=== PATIENT | female | born 1930 | race Caucasian/White ===

== ENCOUNTER 2017-12-22 15:58 | Inpatient (IN) | payer MEDICARE ==
--- NOTE | 2017-12-22 16:55 | ED ---
General Adult HPI - General Chief complaint: Extremity Injury, Lower Stated complaint: fall Time Seen by Provider: 12/22/17 16:00 Source: patient, RN notes reviewed Mode of arrival: EMS Limitations: altered mental status, physical limitation - History of Present Illness Initial comments: This is an 87-year-old female who comes in complaining of left hip pain. Patient states she does walk up steps and fell off the last step onto her left hip. Patient states she was unable to get up on her own so she had to be brought in by ambulance. Patient states she can move her legs fairly well but is still has some pain in the lateral aspect of her hip. Patient denies any head injury or trauma. Patient denies headache. Patient denies numbness weakness. Patient denies any neck pain. Patient denies any upper extremity pain. Patient denies any chest pain or back pain. Patient denies any abdominal pain. Patient's only complaint is left hip pain. - Related Data Home Medications Medication Instructions Recorded Confirmed Calcium Carbonate/Vitamin D3 1 tab PO DAILY 12/22/17 12/22/17 [Calcium 600-Vit D3 200 Tablet] Simvastatin [Zocor] 10 mg PO HS 12/22/17 12/22/17 Venlafaxine HCl [Effexor] 75 mg PO HS 12/22/17 12/22/17 Allergies Allergy/AdvReac Type Severity Reaction Status Date / Time No Known Allergies Allergy Verified 12/22/17 18:10 Review of Systems ROS Statement: Those systems with pertinent positive or pertinent negative responses have been documented in the HPI. ROS Other: All systems not noted in ROS Statement are negative. Past Medical History Past Medical History: Hyperlipidemia History of Any Multi-Drug Resistant Organisms: None Reported Past Surgical History: No Surgical Hx Reported Past Psychological History: Depression Smoking Status: Never smoker Past Alcohol Use History: None Reported Past Drug Use History: None Reported General Exam - General Exam Comments Initial Comments: GENERAL: Patient is well-developed and well-nourished. Patient is nontoxic and well- hydrated and is in mild distress. ENT: Neck is soft and supple. No significant lymphadenopathy is noted. Oropharynx is clear. Moist mucous membranes. Neck has full range of motion without eliciting any pain. EYES: The sclera were anicteric and conjunctiva were pink and moist. Extraocular movements were intact and pupils were equal round and reactive to light. Eyelids were unremarkable. PULMONARY: Unlabored respirations. Good breath sounds bilaterally. No audible rales rhonchi or wheezing was noted. CARDIOVASCULAR: There is a regular rate and rhythm without any murmurs gallops or rubs. ABDOMEN: Soft and nontender with normal bowel sounds. No palpable organomegaly was noted. There is no palpable pulsatile mass. SKIN: Skin is clear with no lesions or rashes and otherwise unremarkable. NEUROLOGIC: Patient is alert and oriented x3. Cranial nerves II through XII are grossly intact. Motor and sensory are also intact. Normal speech, volume and content. Symmetrical smile. MUSCULOSKELETAL: Patient is pain on the lateral aspect of the left hip with external rotation and palpation. LYMPHATICS: No significant lymphadenopathy is noted PSYCHIATRIC: Normal psychiatric evaluation. Normal interpersonal interactions appears functionally intact in deals appropriately with others. No signs of depression. No signs of anxiety. Limitations: altered mental status, physical limitation Course Vital Signs 12/22/17 15:58 Temperature 98.7 F Pulse Rate 61 Respiratory 18 Rate Blood Pressure 164/95 O2 Sat by Pulse 100 Oximetry Medical Decision Making - Medical Decision Making Patient's x-ray of the pelvis and hip showed a left infra-and superior rami fracture. The superior fracture was comminuted and displaced. I spoke with the jillian branch the physician quality assistant for Dr. Alva he agreed because the patient was having difficulty walking that the patient could be admitted to their service. I admitted the patient wrote admitting orders. Disposition Clinical Impression: Fracture of multiple pubic rami Disposition: ADMITTED IP TO THIS [facility] Referrals: Ross Brice MD [Primary Care Provider] - 1-2 days Time of Disposition: 18:55
--- NOTE | 2017-12-22 17:23 | XR ---
EXAMINATION TYPE: XR Hip LT and AP Pelvis DATE OF EXAM: 12/22/2017 COMPARISON: NONE HISTORY: Hip pain TECHNIQUE: A single AP view of the pelvis is obtained. Two views of the left hip are obtained. Findings The proximal femurs are intact. There is a comminuted fracture of the left superior and inferior pubi c rami. There is separation of the fragments up to 1.5 cm. Major fragments are displaced 5 mm. Sacroi liac joints appear intact. Acetabula appear intact. IMPRESSION: Left superior and inferior pubic rami comminuted fracture.
[2017-12-22] MEDS ORDERED: KETOROLAC 30 MG/ML 1 ML VIAL IM STA (17:24)
--- NOTE | 2017-12-22 17:29 | XR ---
EXAMINATION TYPE: XR chest 1V DATE OF EXAM: 12/22/2017 COMPARISON: NONE HISTORY: Fall. Chest pain TECHNIQUE: Single frontal view of the chest is obtained. FINDINGS: Heart and mediastinum are normal. Lungs are clear. Diaphragm is normal. Bony thorax is int act. IMPRESSION: Normal chest
[2017-12-22] MEDS ORDERED: MORPHINE SULFATE 2 MG/ML SYRINGE IVP PRN (19:00)
[2017-12-22 19:12] LABS: Basophils % (A) 0 %; Eosinophils # (A) 0.1 k/uL (0-0.7); Eosinophils % (A) 1 %; HCT 43.5 % (34.0-46.0); HGB 14.4 gm/dL (11.4-16.0); Lymphocytes # (A) 0.6 k/uL (1.0-4.8); Lymphocytes % (A) 4 %; MCH 30.4 pg (25.0-35.0); MCV 92.2 fL (80.0-100.0); Mean Platelet Volume 6.7; Monocytes # (A) 0.7 k/uL (0-1.0); Monocytes % (A) 5 %; Neutrophils # (A) 12.6 k/uL (1.3-7.7); Neutrophils % (A) 90 %; Platelet Count 223 k/uL (150-450); RBC 4.72 m/uL (3.80-5.40); RDW 13.4 % (11.5-15.5)
[2017-12-22 19:20] LABS: Albumin 3.9 g/dL (3.5-5.0); Calcium 9.6 mg/dL (8.4-10.2); Potassium 4.7 mmol/L (3.5-5.1); Total Bilirubin 0.6 mg/dL (0.2-1.3); Total Protein 6.3 g/dL (6.3-8.2)
[2017-12-22 19:31] LABS: Partial Thromboplastin Time 25.6 sec (22.0-30.0); Prothrombin Time 10.2 sec (9.0-12.0)
[2017-12-22] MEDS: ACETAMINOPHEN TAB 500 MG TAB PO PRN (23:04)
[2017-12-22] MEDS: VENLAFAXINE HCL 75 MG TAB PO SCH (23:05)
[2017-12-22] MEDS: FAMOTIDINE 20 MG TAB PO SCH (23:06)
[2017-12-22] MEDS: ATORVASTATIN 10 MG TAB PO SCH (23:06)
[2017-12-23] MEDS: KETOROLAC 30 MG/ML 1 ML VIAL IVP PRN ×2 (00:13→21:46)
[2017-12-23] MEDS: CALCIUM CARB-VIT D 500MG-200UN 1 EACH TAB PO SCH (08:52)
[2017-12-23] MEDS: FAMOTIDINE 20 MG TAB PO SCH ×2 (08:52→20:12)
--- NOTE | 2017-12-23 10:19 | P.HPOR ---
History of Present Illness H&P Date: 12/23/17 Chief Complaint: Left superior and inferior pubic rami fracture This is an 87-year-old female who was evaluated yesterday afternoon [facility] Jessica Hassan. Patient was brought in by EMS after a fall at home. Patient states that she fell on her stairs going into the basement, she landed on her left side. She was able to weight-bear on the left leg initially, but the pain prompted her to come to the hospital. Imaging and lab tests were done upon arrival. Images demonstrated a comminuted superior left pubic rami, and rami fracture. I was contacted by the emergency room physician, the case was discussed. I was able to review the images of my attending. Patient was admitted under our care, with internal medicine on consult. Patient is evaluated today at bedside, she is resting comfortably. She complains of no increase in pain following the bilateral hips or pelvis at this time. She denies any new onset left lower extremity, bilateral upper extremity , cervical, thoracic or lumbar pain Patient states that she has been falling quite a bit over the last month. She states that she just had a computed tomography scan done of her head, she has not received results this time. She believes that her primary care doctor did order this. She denies any previous orthopedic surgery involving the bilateral hips or knees. 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 Cataract surgeries Past Anesthesia/Blood Transfusion Reactions: No Reported Reaction Past Psychological History: Depression Additional Psychological History / Comment(s): Patient commenced on Effexor recently Smoking Status: Never smoker Past Alcohol Use History: Rare Additional Past Alcohol Use History / Comment(s): Patient states she rarely drinks any alcohol - maybe a glass of wine once a month Past Drug Use History: None Reported Medications and Allergies Home Medications Medication Instructions Recorded Confirmed Type Calcium Carbonate/Vitamin D3 1 tab PO DAILY 12/22/17 12/22/17 History [Calcium 600-Vit D3 200 Tablet] Simvastatin [Zocor] 10 mg PO HS 12/22/17 12/22/17 History Venlafaxine HCl [Effexor] 75 mg PO HS 12/22/17 12/22/17 History Allergies Allergy/AdvReac Type Severity Reaction Status Date / Time No Known Allergies Allergy Verified 12/22/17 18:10 Physical Examination Lower extremities: Logroll maneuver the bilateral lower extremities reproduces no pain No open lesions or sores present throughout the lower extremities, no significant areas of erythema She is able to extend and flex the knees with no difficulty Plantar flexion, dorsiflexion, EHL, FHL are intact Sensory exam to light touch throughout the extremity is intact Dorsal pedis pulses 2+ bilaterally Results - Labs Labs: Abnormal Lab Results - Last 24 Hours (Table) 12/22/17 12/22/17 Range/Units 18:49 18:49 WBC 14.0 H (3.8-10.6) k/uL Neutrophils # 12.6 H (1.3-7.7) k/uL Lymphocytes # 0.6 L (1.0-4.8) k/uL Sodium 133 L (137-145) mmol/L BUN 21 H (7-17) mg/dL Glucose 111 H (74-99) mg/dL AST 39 H (14-36) U/L H & H 12/22/17 Range/Units 18:49 Hgb 14.4 (11.4-16.0) gm/dL Hct 43.5 (34.0-46.0) % Coagulation 12/22/17 Range/Units 18:49 INR 1.0 (<1.2) Result Diagrams: 12/22/17 18:49 12/22/17 18:49 Assessment and Plan Plan: Imaging: AP pelvis views were obtained, and also a left hip. Images demonstrated a comminuted left superior pubic rami fracture, and a minimally displaced inferior. Rami fracture on the left side. No other acute fractures or dislocations present Assessment: Displaced superior left pubic rami fracture Inferior left pubic rami fracture Status post fall on stairs Other medical comorbidities Plan: I was able to discuss this case, including but physical exam findings and imaging studies my tending Dr. Alva. No orthopedic surgical intervention needed at this time. Recommend weight-bear as tolerated with walker Pain control, utilize [id number] Tylenol or anti-inflammatories Medical recommendations Recommend short stay at outpatient rehab facility for daily physical therapy We'll be available for any further questions regarding this patient Time with Patient: Less than 30
[2017-12-23] MEDS: ACETAMINOPHEN TAB 500 MG TAB PO PRN ×3 (12:15→23:32)
[2017-12-23 15:23] VITALS: RESP 16
--- NOTE | 2017-12-23 16:17 | P.CONS ---
History of Present Illness - Reason for Consult Leukocytosis, hyponatremia - History of Present Illness 82-year-old pleasant female was brought in after the she fell and landed on the left side while going downstairs to the basement. Patient is not supposed to walk without any help. Patient is found to have superior left pubic rami fracture. Patient was admitted orthopedic service. Patient denied any fever chills nausea vomiting patient does have leukocytosis patient ended dysuria patient doesn't have any major medical problems patient denied any muscle tenderness patient does have generalized weakness physical therapy and occupational therapy consultation was obtained and patient may need to be discharged to subacute rehabilitation conservative management for have pubic ramus fracture. Patient does have mild hyponatremia appears to be bit dehydrated will recheck the electrolytes and white blood cell count tomorrow Review of Systems REVIEW OF SYSTEMS: CONSTITUTIONAL: No fever, no malaise, no fatigue. HEENT: No recent visual problems or hearing problems. Denied any sore throat. CARDIOVASCULAR: No chest pain, orthopnea, PND, no palpitations, no syncope. PULMONARY: No shortness of breath, no cough, no hemoptysis. GASTROINTESTINAL: No diarrhea, no nausea, no vomiting, no abdominal pain. Normoactive bowel sounds. NEUROLOGICAL: No headaches, no weakness, no numbness. HEMATOLOGICAL: Denies any bleeding or petechiae. GENITOURINARY: Denies any burning micturition, frequency, or urgency. MUSCULOSKELETAL/RHEUMATOLOGICAL: Pain in the left hip area is fairly well controlled with IV Tylenol ENDOCRINE: Denies any polyuria or polydipsia. The rest of the 14-point review of systems is negative. 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 Cataract surgeries Past Anesthesia/Blood Transfusion Reactions: No Reported Reaction Past Psychological History: Depression Additional Psychological History / Comment(s): Patient commenced on Effexor recently Smoking Status: Never smoker Past Alcohol Use History: Rare Additional Past Alcohol Use History / Comment(s): Patient states she rarely drinks any alcohol - maybe a glass of wine once a month Past Drug Use History: None Reported Medications and Allergies Home Medications Medication Instructions Recorded Confirmed Type Calcium Carbonate/Vitamin D3 1 tab PO DAILY 12/22/17 12/22/17 History [Calcium 600-Vit D3 200 Tablet] Simvastatin [Zocor] 10 mg PO HS 12/22/17 12/22/17 History Venlafaxine HCl [Effexor] 75 mg PO HS 12/22/17 12/22/17 History Allergies Allergy/AdvReac Type Severity Reaction Status Date / Time No Known Allergies Allergy Verified 12/22/17 18:10 Physical Exam Vitals: Vital Signs Temp Pulse Pulse Resp BP BP Pulse Ox 12/23/17 15:00 97.4 F L 70 16 108/59 96 12/23/17 09:04 98.2 F 75 15 113/70 95 12/23/17 00:11 16 12/22/17 23:40 98.1 F 63 16 158/87 96 12/22/17 20:55 97.5 F L 86 16 141/60 98 12/22/17 19:24 97.6 F 86 18 123/72 98 Intake and Output 12/23/17 12/23/17 12/23/17 06:59 14:59 22:59 Intake Total 1080 240 Balance 1080 240 Intake: Oral 1080 240 Other: Voiding Method Toilet Toilet Bedside Commode Bedside Commode # Voids 2 1 # Bowel Movements 0 PHYSICAL EXAMINATION: GENERAL: The patient is alert and oriented x3, not in any acute distress. Thin built female HEENT: Pupils are round and equally reacting to light. EOMI. No scleral icterus. No conjunctival pallor. Normocephalic, atraumatic. No pharyngeal erythema. No thyromegaly. CARDIOVASCULAR: S1 and S2 present. No murmurs, rubs, or gallops. PULMONARY: Chest is clear to auscultation, no wheezing or crackles. ABDOMEN: Soft, nontender, nondistended, normoactive bowel sounds. No palpable organomegaly. MUSCULOSKELETAL: Deferred to orthopedic surgery EXTREMITIES: No cyanosis, clubbing, or pedal edema. NEUROLOGICAL: Gross neurological examination did not reveal any focal deficits. SKIN: No rashes. Results CBC & Chem 7: 12/22/17 18:49 12/22/17 18:49 Labs: Abnormal Lab Results - Last 24 Hours (Table) 12/22/17 12/22/17 Range/Units 18:49 18:49 WBC 14.0 H (3.8-10.6) k/uL Neutrophils # 12.6 H (1.3-7.7) k/uL Lymphocytes # 0.6 L (1.0-4.8) k/uL Sodium 133 L (137-145) mmol/L BUN 21 H (7-17) mg/dL Glucose 111 H (74-99) mg/dL AST 39 H (14-36) U/L Assessment and Plan Plan: -Displaced left superior pubic mehdi a fracture: Conservative measures PT and OT discharged to subacute rehabilitation pain management as mentioned above try to avoid opiates, benzodiazepines, barbiturates, anticoagulated medications. -Generalized weakness and deconditioning will require physical therapy as an outpatient -Hyperlipidemia -Depression continue with venlafaxine
[2017-12-23] MEDS: ATORVASTATIN 10 MG TAB PO SCH (20:12)
[2017-12-23] MEDS: VENLAFAXINE HCL 75 MG TAB PO SCH (20:12)
[2017-12-24 07:28] LABS: MCH 30.2 pg (25.0-35.0); MCHC 32.4 g/dL (31.0-37.0); MCV 93.1 fL (80.0-100.0); Mean Platelet Volume 6.5; Platelet Count 134 k/uL (150-450); RBC 3.97 m/uL (3.80-5.40); RDW 13.9 % (11.5-15.5); WBC 8.5 k/uL (3.8-10.6)
[2017-12-24 07:46] LABS: Anion Gap 6 mmol/L; Blood Urea Nitrogen 18 mg/dL (7-17); Calcium 8.8 mg/dL (8.4-10.2); Carbon Dioxide 28 mmol/L (22-30); Chloride 94 mmol/L (98-107); Glucose 98 mg/dL (74-99); Potassium 4.5 mmol/L (3.5-5.1); Sodium 128 mmol/L (137-145)
[2017-12-24] MEDS: ACETAMINOPHEN TAB 500 MG TAB PO PRN ×3 (08:12→20:29)
[2017-12-24] MEDS: FAMOTIDINE 20 MG TAB PO SCH ×2 (08:14→20:30)
[2017-12-24] MEDS: CALCIUM CARB-VIT D 500MG-200UN 1 EACH TAB PO SCH (08:15)
[2017-12-24] MEDS: KETOROLAC 30 MG/ML 1 ML VIAL IVP PRN ×3 (10:14→22:24)
--- NOTE | 2017-12-24 11:28 | P.DS ---
Providers Date of admission: 12/22/17 18:57 Expected date of discharge: 12/24/17 Attending physician: Olvin Alva Consults: 12/22/17 18:57 Consult Physician Urgent Consulting Provider: Ntaalia Sterling Consult Reason/Comments: Medical management Do you want consulting provider notified?: Yes Primary care physician: Ross Brice MD Hospital Course: Date of admission: 12/22/2017 Date of discharge: 12/24/2017 Admission diagnosis: Left superior and inferior pubic rami fracture Discharge diagnosis: Same Attending physician: Dr. Alva Surgical procedures: None Brief history: Patient is a 87-year-old female who presented to [facility] 12/22/2017 after sustaining a fall at home on her steps. She had some pain involving the left hip, she was able to weight-bear. Images demonstrated a displaced left superior. Rami fracture and inferior pubic rami fracture. Patient was admitted under our care for further evaluation and likely rehab placement. Hospital course: Patient's orthopeidc and medical care was provided daily. Patient had daily laboratory tests performed for evaluation of overall blood counts . Patient had daily physical therapy to include strengthening range of motion as well as education with walker ambulation. Patient was noted to have a relatively uneventful postoperative course. Discharge condition/disposition: Patient will be discharged to rehab in stable condition. Discharge medications: Instructions are given on resumption of patient's normal daily medications per primary care recommendation, in addition patient will be prescribed Tylenol 650mg Discharge instructions: 1. Weight-bear as tolerated, utilize walker with ambulation 2. Follow up in office at [address] Alva 3. Follow up with your primary care doctor 7-10 days after discharge. 4. Contact [facility] with any questions, . Procedures: None Patient Condition at Discharge: Good Plan - Discharge Summary Discharge Rx Participant: No New Discharge Prescriptions: New Acetaminophen Tab [Tylenol Tab] 650 mg PO Q6H #60 tablet No Action Venlafaxine HCl [Effexor] 75 mg PO HS Simvastatin [Zocor] 10 mg PO HS Calcium Carbonate/Vitamin D3 [Calcium 600-Vit D3 200 Tablet] 1 tab PO DAILY Discharge Medication List Calcium Carbonate/Vitamin D3 [Calcium 600-Vit D3 200 Tablet] 1 tab PO DAILY 06/29 [History] Simvastatin [Zocor] 10 mg PO HS 12/22/17 [History] Venlafaxine HCl [Effexor] 75 mg PO HS 12/22/17 [History] Acetaminophen Tab [Tylenol Tab] 650 mg PO Q6H #60 tablet 12/24/17 [Rx] Follow up Appointment(s)/Referral(s): Ross Brice MD [Primary Care Provider] - 1-2 days Olvin Alva DO [Doctor of Osteopathic Medicine] - 2 Weeks Jeremie Hubbard PAC [PHYSICIAN [employer]CR[employer] SECRETARY] - 01/08/18 2:30 pm Activity/Diet/Wound Care/Special Instructions: Discharge instructions: Weight-bear as tolerated with walker Follow-up at [facility] [address] Alva Discharge Disposition: TRANSFER TO SNF/ECF
--- NOTE | 2017-12-24 15:46 | P.PN ---
Subjective Progress Note Date: 12/24/17 Progress note being dictated for Dr. Sterling. Interval history:82-year-old pleasant female was brought in after the she fell and landed on the left side while going downstairs to the basement. Patient is not supposed to walk without any help. Patient is found to have superior left pubic rami fracture. Patient was admitted orthopedic service. Patient denied any fever chills nausea vomiting patient does have leukocytosis patient ended dysuria patient doesn't have any major medical problems patient denied any muscle tenderness patient does have generalized weakness physical therapy and occupational therapy consultation was obtained and patient may need to be discharged to subacute rehabilitation conservative management for have pubic ramus fracture. Patient does have mild hyponatremia appears to be bit dehydrated will recheck the electrolytes and white blood cell count tomorrow 12/24/17 sitting up in chair, pain currently controlled. Denies nausea vomiting. Passing flatus, no bowel movement. Diet intake fair.Sodium decreased to 128. Denies chest pain, palpitations or increased shortness of breath. Denies lightheadedness or dizziness or focal deficits. Objective - Vital Signs Vital signs: Vital Signs Temp 97.0 F L 12/24/17 15:00 Pulse 80 12/24/17 15:00 Resp 16 12/24/17 15:00 BP 103/75 12/24/17 15:00 Pulse Ox 98 12/24/17 15:00 Intake & Output 12/23/17 12/24/17 12/24/17 18:59 06:59 18:59 Intake Total 240 200 Balance 240 200 Intake: Oral 240 Other 200 Other: Voiding Method Toilet Toilet Bedside Commode Bedside Commode # Voids 1 3 5 - Exam GENERAL: The patient is sitting up in chair, alert and oriented x3, not in any acute distress. Thin built female HEENT: Pupils are round and equally reacting to light. EOMI. No scleral icterus. No conjunctival pallor. Normocephalic, atraumatic. No pharyngeal erythema. No thyromegaly. CARDIOVASCULAR: S1 and S2 present. No murmurs, rubs, or gallops. PULMONARY: Chest is clear to auscultation, no wheezing or crackles. ABDOMEN: Soft, nontender, nondistended, normoactive bowel sounds. No palpable organomegaly. MUSCULOSKELETAL: Deferred to orthopedic surgery EXTREMITIES: No cyanosis, clubbing, or pedal edema. NEUROLOGICAL: Gross neurological examination did not reveal any focal deficits. SKIN: No rashes. - Labs CBC & Chem 7: 12/24/17 06:33 12/24/17 06:33 Labs: Abnormal Lab Results - Last 24 Hours (Table) 12/24/17 12/24/17 12/24/17 Range/Units 06:33 06:33 06:33 Plt Count 134 L (150-450) k/uL Sodium 128 L (137-145) mmol/L Chloride 94 L (98-107) mmol/L BUN 18 H (7-17) mg/dL Osmolality 273 L (280-301) mosm/kg Assessment and Plan Assessment: -Displaced left superior pubic mehdi a fracture: Conservative measures PT and OT.try to avoid opiates, benzodiazepines, barbiturates -Generalized weakness and deconditioning will require physical therapy as an outpatient -Hyperlipidemia -Depression continue with venlafaxine -Hyponatremia, probably euvolemic, 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 Plan: Continue on current medication regime ,monitoring and symptomatic treatment. Workup ordered regarding hyponatremia, urine random creatinine urine routine osmolality urine random sodium, TSH, serum osmolality. Repeat BMP in a.m. aggressive pulmonary toileting recommended. Discharge planning in progress as per orthopedics. The impression and plan of care has been dictated as directed. : I performed a history and examination of this patient, discussed the same with the dictator. I agree with the dictator's note ,documented as a scribe. Any additional findings or plans will be noted.
[2017-12-24 16:57] LABS: Creatinine,Urine Random 78.8 mg/dL
[2017-12-24] MEDS: ATORVASTATIN 10 MG TAB PO SCH (20:30)
[2017-12-24] MEDS: VENLAFAXINE HCL 75 MG TAB PO SCH (20:30)
[2017-12-25] MEDS: ACETAMINOPHEN TAB 500 MG TAB PO PRN ×2 (06:13→12:31)
[2017-12-25 06:57] LABS: Anion Gap 6 mmol/L; Blood Urea Nitrogen 16 mg/dL (7-17); Calcium 8.5 mg/dL (8.4-10.2); Carbon Dioxide 27 mmol/L (22-30); Chloride 94 mmol/L (98-107); Glucose 107 mg/dL (74-99); Potassium 4.4 mmol/L (3.5-5.1); Sodium 127 mmol/L (137-145)
[2017-12-25 07:52] VITALS: BP 155/84; PULSE 76; TEMP 97.9
[2017-12-25] MEDS: KETOROLAC 30 MG/ML 1 ML VIAL IVP PRN ×2 (08:00→14:17)
[2017-12-25] MEDS: CALCIUM CARB-VIT D 500MG-200UN 1 EACH TAB PO SCH (08:54)
[2017-12-25] MEDS: FAMOTIDINE 20 MG TAB PO SCH (08:54)
[2017-12-25] MEDS ORDERED: SODIUM CHLORIDE 0.9% 1,000 ML IV ONE (10:39)
--- NOTE | 2017-12-25 13:49 | XR ---
EXAMINATION TYPE: XR chest 1V portable DATE OF EXAM: 12/25/2017 COMPARISON: Prior chest x-ray 12/22/2017 HISTORY: Shortness of breath TECHNIQUE: Single frontal view of the chest is obtained. FINDINGS: Patient is rotated. Postop changes are noted in the cervical spine. Patchy basilar density is present. There is no focal air space opacity, pleural effusion, or pneumothorax seen. The cardia c silhouette size is stable. The osseous structures are intact. IMPRESSION: Probable basilar atelectasis, expiratory rotated exam, follow-up as indicated.
--- NOTE | 2017-12-25 18:09 | P.PN ---
Subjective Progress Note Date: 12/25/17 Progress note being dictated for Dr. Sterling. Interval history:82-year-old pleasant female was brought in after the she fell and landed on the left side while going downstairs to the basement. Patient is not supposed to walk without any help. Patient is found to have superior left pubic rami fracture. Patient was admitted orthopedic service. Patient denied any fever chills nausea vomiting patient does have leukocytosis patient ended dysuria patient doesn't have any major medical problems patient denied any muscle tenderness patient does have generalized weakness physical therapy and occupational therapy consultation was obtained and patient may need to be discharged to subacute rehabilitation conservative management for have pubic ramus fracture. Patient does have mild hyponatremia appears to be bit dehydrated will recheck the electrolytes and white blood cell count tomorrow 12/24/17 sitting up in chair, pain currently controlled. Denies nausea vomiting. Passing flatus, no bowel movement. Diet intake fair.Sodium decreased to 128. Denies chest pain, palpitations or increased shortness of breath. Denies lightheadedness or dizziness or focal deficits. 12/25/2017 tolerating diet with no nausea or vomiting. Positive bowel movement. Pain control. Sodium 127, FeNa 0.08. Denies chest pain, palpitations or increasing shortness of breath. Denies chest pain, palpitations. Objective - Vital Signs Vital signs: Vital Signs Temp 97.9 F 12/25/17 07:52 Pulse 76 12/25/17 07:52 Resp 16 12/25/17 07:52 BP 155/84 12/25/17 07:52 Pulse Ox 95 12/25/17 01:17 Intake & Output 12/24/17 12/25/17 12/25/17 18:59 06:59 18:59 Intake Total 200 Balance 200 Intake: Other 200 Other: # Voids 5 3 1 - Exam GENERAL: The patient is sitting up in chair, alert and oriented x3, not in any acute distress. HEENT: Pupils are round and equally reacting to light. EOMI. No scleral icterus. No conjunctival pallor. Normocephalic, atraumatic. No pharyngeal erythema. No thyromegaly. CARDIOVASCULAR: S1 and S2 present. No murmurs, rubs, or gallops. PULMONARY: Chest is clear to auscultation, no wheezing or crackles. ABDOMEN: Soft, nontender, nondistended, normoactive bowel sounds. No palpable organomegaly. MUSCULOSKELETAL: Deferred to orthopedic surgery EXTREMITIES: No cyanosis, clubbing, or pedal edema. NEUROLOGICAL: Gross neurological examination did not reveal any focal deficits. SKIN: No rashes. - Labs CBC & Chem 7: 12/24/17 06:33 12/25/17 06:26 Labs: Abnormal Lab Results - Last 24 Hours (Table) 12/25/17 Range/Units 06:26 Sodium 127 L (137-145) mmol/L Chloride 94 L (98-107) mmol/L Glucose 107 H (74-99) mg/dL Assessment and Plan Assessment: -Displaced left superior pubic mehdi a fracture: Conservative measures PT and OT.try to avoid opiates, benzodiazepines, barbiturates -Generalized weakness and deconditioning will require physical therapy as an outpatient -Hyperlipidemia -Depression continue with venlafaxine -Hyponatremia, hypovolemic, possibly prerenal. Plan: Continue on current medication regime ,monitoring and symptomatic treatment. 1 L fluid bolus over 2-1/2 hours administered. Chest x-ray post fluid bolus reported atelectasis. Patient is being discharged by orthopedics to [facility] subacute rehab. Close monitoring of sodium, renal function with repeat labs tomorrow at [facility]. The impression and plan of care has been dictated as directed. : I performed a history and examination of this patient, discussed the same with the dictator. I agree with the dictator's note ,documented as a scribe. Any additional findings or plans will be noted.
== END 2017-12-25 15:03 | DRG 536 ==
LOC: SUPCPDRO 15:58 → EC 15:58 → 3SUR 18:57
PROVIDERS: ADMIT Orthopaedic Surgery; ATTEND Orthopaedic Surgery
DX: S32.592A Other specified fracture of left pubis, initial encounter for closed fracture (principal); E87.1 Hypo-osmolality and hyponatremia; D72.829 Elevated white blood cell count, unspecified; E78.5 Hyperlipidemia, unspecified; E86.1 Hypovolemia; F32.9 Major depressive disorder, single episode, unspecified; W19.XXXA Unspecified fall, initial encounter; Y92.009 Unspecified place in unspecified non-institutional (private) residence as the place of occurrence of the external cause; Z79.899 Other long term (current) drug therapy; Z98.49 Cataract extraction status, unspecified eye
CPT/HCPCS: 36415; 71045; 73502; 80048; 80053; 82570; 83930; 83935; 84300; 84443; 85025; 85027; 85610; 85730; 96372; 99284

== ENCOUNTER → 2020-12-05 | Outpatient (CLI) | payer MEDICARE ==
[2020-12-05 16:12] LABS: Basophils # (A) 0.05 X 10*3/uL (0.00-0.10); Basophils % (A) 0.6 %; Eosinophils % (A) 3.6 %; HCT 42.6 % (37.2-46.3); Lymphocytes # (A) 0.77 X 10*3/uL (0.90-5.00); Lymphocytes % (A) 9.3 %; MCH 29.3 pg (27.0-32.0); MCHC 30.5 g/dL (32.0-37.0); MCV 96.2 fL (80.0-97.0); Mean Platelet Volume 9.8 fL (9.5-12.2); Monocytes # (A) 0.74 X 10*3/uL (0.20-1.00); Monocytes % (A) 8.9 %; Neutrophils # (A) 6.35 X 10*3/uL (1.80-7.70); Neutrophils % (A) 76.3 %; Platelet Count 287 X 10*3/uL (140-440); RBC 4.43 X 10*6/uL (4.10-5.20); RDW 14.4 % (11.5-14.5); WBC 8.32 X 10*3/uL (4.50-10.00)
[2020-12-05 17:46] LABS: Erythrocyte Sedimentation Rate 19 mm/Hr (0-30)
[2020-12-05 22:28] LABS: African American GFR (CKD) 66.2 (60.0-200.0); Albumin 3.9 g/dL (3.80-4.90); Albumin/Globulin Ratio 1.44 (1.60-3.17); Anion Gap 9.1 mmol/L (4.00-12.00); BUN/Creat Ratio 25.56 Ratio (12.00-20.00); Calcium 9.5 mg/dL (8.7-10.3); Carbon Dioxide 26.9 mmol/L (21.6-31.8); Globulin 2.7 g/dL (1.6-3.3); Non-African American GFR(CKD) 57.1 (60.0-200.0); Potassium 4.5 mmol/L (3.5-5.5); Total Bilirubin 0.4 mg/dL (0.3-1.2); Total Protein 6.6 g/dL (6.2-8.2)
[2020-12-05 22:29] LABS: C Reactive Protein 1.7 mg/dL (0.0-0.8); Chol/HDL Ratio 2.56; Phosphorus 3.6 mg/dL (2.4-5.1); Uric Acid 5.4 mg/dL (2.9-7.7)
== END | disposition home or self-care (01) ==
LOC: LABWHC1 09:01
PROVIDERS: ATTEND Internal Medicine
DX: I10 Essential (primary) hypertension (principal); D64.9 Anemia, unspecified; M10.9 Gout, unspecified; E78.5 Hyperlipidemia, unspecified; E03.9 Hypothyroidism, unspecified; M19.90 Unspecified osteoarthritis, unspecified site
CPT/HCPCS: 36415; 80053; 80061; 82550; 83735; 84100; 84443; 84550; 85025; 85652; 86140

== ENCOUNTER → 2021-01-23 | Outpatient (CLI) | payer MEDICARE ==
--- NOTE | 2021-01-23 22:12 | MR ---
EXAMINATION TYPE: MR brain wo con DATE OF EXAM: 01/23/2021 COMPARISON: None HISTORY: Unsteady gait, Alzheimer's disease unspecified. CONTRAST: Performed utilizing 0 mL intravenous Gadavist gadolinium contrast. TECHNIQUE: Multiplanar, multiecho imaging on a 3.0 Dora magnet is performed through the brain. Stud y is performed within 24 hours of arrival to the hospital. The craniovertebral junction is normal. The pituitary is normal. Diffusion-weighted imaging is performed. No abnormal hyperintensity is present to suggest an acute i ntracranial infarct or acute ischemic change. There are confluent periventricular white matter changes most likely on the basis of chronic white ma tter ischemic change. There is white matter change likely related to chronic ischemia within the brai n stem. Ventricles and sulci are prominent for the patient age. IMPRESSIONS: 1. Atrophy with extensive confluent chronic appearing periventricular white matter ischemic-type ellis .
== END | disposition home or self-care (01) ==
LOC: RADMRIMAIN 15:35
PROVIDERS: ATTEND Psychiatry & Neurology Neurology
DX: G31.9 Degenerative disease of nervous system, unspecified (principal); I67.82 Cerebral ischemia
CPT/HCPCS: 70551

== ENCOUNTER → 2021-03-27 | Outpatient (CLI) | payer MEDICARE ==
--- NOTE | 2021-03-27 13:39 | XR ---
EXAMINATION TYPE: XR chest 2V DATE OF EXAM: 03/27/2021 COMPARISON: Chest x-ray December 25, 2017 HISTORY: Shortness of breath. TECHNIQUE: Frontal and lateral views of the chest are obtained. FINDINGS: There is chronic parenchymal changes without suspicious focal air space opacity, pleural effusion, or pneumothorax seen. Stable cardiomegaly with atheroscler otic and ectatic thoracic aorta. Surgical change of cervical spine is partially imaged similar to kiran or. Osseous structures are demineralized. Mild to moderate compression type fracture deformity of rou ghly T10 level and mild compression type fracture at T7 level are favored chronic in age. IMPRESSION: Cardiomegaly and chronic changes without new suspicious acute pulmonary process.
== END | disposition home or self-care (01) ==
LOC: RADXRMAIN 12:55
PROVIDERS: ATTEND Internal Medicine
DX: I25.10 Atherosclerotic heart disease of native coronary artery without angina pectoris (principal); I77.810 Thoracic aortic ectasia; I51.7 Cardiomegaly
CPT/HCPCS: 71046

== ENCOUNTER → 2021-12-12 | Outpatient (CLI) | payer MEDICARE ==
[2021-12-12 14:28] LABS: Basophils # (A) 0.04 X 10*3/uL (0.00-0.10); Basophils % (A) 0.5 %; Eosinophils # (A) 0.19 X 10*3/uL (0.04-0.35); Eosinophils % (A) 2.2 %; HCT 47.8 % (37.2-46.3); HGB 14.7 g/dL (12.0-15.0); Immature Grans, Automated 0.8 %; Lymphocytes # (A) 0.96 X 10*3/uL (0.90-5.00); Lymphocytes % (A) 11.2 %; MCH 29.6 pg (27.0-32.0); MCHC 30.8 g/dL (32.0-37.0); MCV 96.2 fL (80.0-97.0); Mean Platelet Volume 10.2 fL (9.5-12.2); Monocytes # (A) 0.71 X 10*3/uL (0.20-1.00); Monocytes % (A) 8.3 %; NRBC Per 100 WBC 0 /100 WBCS (0.0-0.0); Neutrophils # (A) 6.62 X 10*3/uL (1.80-7.70); Platelet Count 229 X 10*3/uL (140-440); RBC 4.97 X 10*6/uL (4.10-5.20); RDW 13.6 % (11.5-14.5); WBC 8.59 X 10*3/uL (4.50-10.00)
[2021-12-12 14:33] LABS: ALT 18 U/L (8-44); AST 28 U/L (13-35); African American GFR (CKD) 71.8 (60.0-200.0); Albumin 4.2 g/dL (3.8-4.9); Albumin/Globulin Ratio 1.43 (1.60-3.17); Alkaline Phosphatase 44 U/L (41-126); BUN/Creat Ratio 27.99 Ratio (12.00-20.00); Blood Urea Nitrogen 23.4 mg/dL (9.0-27.0); C Reactive Protein <0.30 mg/dL (0.00-0.80); Calcium 9.7 mg/dL (8.7-10.3); Carbon Dioxide 26.9 mmol/L (20.0-27.5); Chloride 106 mmol/L (96-109); Creatine Kinase 79 U/L (26-186); Glucose 99 mg/dL (70-110); Magnesium 2.3 mg/dL (1.5-2.4); Phosphorus 2.9 mg/dL (2.4-5.1); Potassium 4.6 mmol/L (3.5-5.5); Sodium 143 mmol/L (135-145); Total Protein 7.2 g/dL (6.2-8.2)
[2021-12-12 14:53] LABS: Chol/HDL Ratio 2.18 Ratio; LDL Cholesterol,Calculated 80.2 mg/dL (0.0-131.0); VLDL Calculation 14.74 mg/dL (5.00-40.00)
[2021-12-12 17:31] LABS: Erythrocyte Sedimentation Rate 18 mm/Hr (0-30)
== END | disposition home or self-care (01) ==
LOC: LABWHC1 08:46
PROVIDERS: ATTEND Internal Medicine
DX: Z00.00 Encounter for general adult medical examination without abnormal findings (principal); I12.9 Hypertensive chronic kidney disease with stage 1 through stage 4 chronic kidney disease, or unspecified chronic kidney disease; D64.9 Anemia, unspecified; E78.5 Hyperlipidemia, unspecified; E11.65 Type 2 diabetes mellitus with hyperglycemia; E11.22 Type 2 diabetes mellitus with diabetic chronic kidney disease; M81.0 Age-related osteoporosis without current pathological fracture; N18.30 Chronic kidney disease, stage 3 unspecified
CPT/HCPCS: 36415; 80053; 80061; 82306; 82550; 83036; 83735; 83970; 84100; 84443; 85025; 85652; 86140